=== PATIENT | female | born 1965 | race Caucasian/White ===

== ENCOUNTER 2022-04-21 15:28 | Outpatient (CLI) | payer OTHER, SELFPAY ==
--- OUTSIDE RECORDS SUMMARY | 2022-03-20 08:34 | XMS_ITS | Continuity of Care Document ---
:1965 Author Social History Smoking Status Unknown if ever smoked Additional Data Assigned Sex Female Medications No known medications Insurance Providers Guarantor Sue Mooney Address [facility] [address] Contact Info. Home Phone: Payer Policy Id Coverage Id Subscriber's Subscriber Effective Expi ration Name Id Date Date Meritain [id number] Sue Mooney [facility]
--- NOTE | 2022-04-21 15:45 | CRLHL7_ITS ---
For Patients: As a result of the Century Cures Act, medical imaging exams and procedure reports are released immediately into your electronic medical record. You may view this report before your referring provider. If you have questions, please contact your health care provider. BILATERAL MAMMOGRAM WITH COMPUTER-AIDED DETECTION AND TOMOSYNTHESIS TECHNIQUE: CC and MLO views were obtained. These mammographic images have been obtained using full-field digital technique. These mammographic images were interpreted with the benefit of computer-aided detection. Breast tomosynthesis was used in this interpretation. COMPARISON FILM: 09/17/20, 05/26/19, 07/16/16. FINDINGS: There are scattered areas of fibroglandular density IMPRESSION: There is no radiographic evidence for malignancy. ASSESSMENT: BI-RADS Category 1: Negative RECOMMENDATION: Routine screening mammogram in 1 year. A lay language report of this examination will be provided to the patient. Tomi Benites M.D. Diagnostic/Musculoskeletal Radiologist [email or web address] Transcribed: 8:[address]/Dictated by: Tomi Benites MD @ 04/22/2022 10:10:00 AM (Electronically Signed)
== END 2022-04-21 15:29 | disposition home or self-care (01) ==
LOC: MAMMO 15:35
PROVIDERS: PCP Radiology Diagnostic Radiology; Visit Provider Radiology Diagnostic Radiology
DX: Z12.31 Encounter for screening mammogram for malignant neoplasm of breast (principal)
CPT/HCPCS: 77063; 77067